=== PATIENT | female | born 1940 | race Caucasian/White ===

== ENCOUNTER → 2018-07-09 | Outpatient (CLI) | payer MEDICARE, BC ==
[2017-01-10 15:00] VITALS: BP 136/84
[~2018-07-09] MED LIST: AMOX250C PO; ASPI-482 PO; BENZ-8 PO; CHOL10003 PO; DULO60CA6 PO; FLUT9.9S NS; GUAI5LIQ3 PO; HYDR200T5 PO; LEVO0.5P MC; LEVO125T5 PO; LOSA1TAB22 PO; LOSA25TA54 PO; MULT-681 PO; OMEP40CA5 PO; SULF500T36 PO; TRAZ150T49 PO
--- NOTE | 2018-07-09 15:07 | KCIC ---
EXAM: Bilateral hand and wrist DATE: 07/09/2018 12:00 AM INDICATIONS: Polyarthralgia, bilateral hand pain COMPARISON: No prior FINDINGS: PA, oblique and lateral views of the hand and wrist bilaterally show normal symmetric bone density. There is mild joint space narrowing at the bilateral first and second MTP joints with subtle associated erosive change identified at the metacarpal heads. At the left index finger DIP joint there is joint space narrowing with mild ulnar subluxation of the distal phalanx relative to the middle phalanx. No significant proliferative changes are identified. Negative periarticular soft tissue calcifications or chondrocalcinosis. Negative focal soft tissue swelling. 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 Of note, given the mildly eccentric joint space narrowing at the right index MCP joint osteoarthritis with subtle subchondral cystic change remains within the differential but is felt to be less likely. Electronically signed by: Ric Bustamante MD (07/09/2018 3:04 PM) [facility]
== END | disposition home or self-care (01) ==
LOC: KCIC 14:11
PROVIDERS: ATTEND Family Medicine
DX: M19.041 Primary osteoarthritis, right hand (principal)
CPT/HCPCS: 73130